=== PATIENT | female | born 1955 | race Two or more races ===

== ENCOUNTER 2017-05-12 10:41 | Day surgery (SDC) | payer BC ==
[~2017-05-12] VITALS: Ht 154.9 cm; Wt 79.8 kg
[2017-05-12 12:07] VITALS: Ht 154.9 cm; Wt 79.8 kg
[2017-05-12] MEDS ORDERED: GLIM2TAB PO (12:22)
[2017-05-12] MEDS ORDERED: LISI20TA11 PO (12:22)
[2017-05-12] MEDS ORDERED: METF-480 PO (12:22)
[2017-05-12] MEDS ORDERED: MIDAZOLAM 1 MG/ML 2 ML INJ ONE (13:58)
[2017-05-12] MEDS ORDERED: FENTAnyl 50 MCG/ML VIAL ONE (13:58)
--- NOTE | 2017-05-12 14:30 | OPPN ---
Date/Time of Note Date/Time of Note DATE: 05/12/17 TIME: 14:29 Operative Report Preoperative Diagnosis Screening colonoscopy Postoperative Diagnosis Normal colonoscopy Operation/Procedure Performed Colonoscopy Surgeon see signature line special education teaching assistant None Anesthesia: moderate sedation (2 mg IV Versed 50 mcg of fentanyl moderate sedation time 15 minutes) Estimated blood loss: none Transfusion Required none Specimen None Grafts/Implants none Complications none JOAQUINA HORAN MD May 12, 2017 14:30
--- NOTE | 2017-05-12 14:30 | OPPN ---
Date/Time of Note Date/Time of Note DATE: 05/12/17 TIME: 14:29 Operative Report Preoperative Diagnosis Screening colonoscopy Postoperative Diagnosis Normal colonoscopy Operation/Procedure Performed Colonoscopy Surgeon see signature line nutritional assistant None Anesthesia: moderate sedation (2 mg IV Versed 50 mcg of fentanyl moderate sedation time 15 minutes) Estimated blood loss: none Transfusion Required none Specimen None Grafts/Implants none Complications none JOAQUINA HORAN MD May 12, 2017 14:30
--- NOTE | 2017-05-12 14:30 | OPPN ---
Date/Time of Note Date/Time of Note DATE: 05/12/17 TIME: 14:29 Operative Report Preoperative Diagnosis Screening colonoscopy Postoperative Diagnosis Normal colonoscopy Operation/Procedure Performed Colonoscopy Surgeon see signature line library circulation assistant None Anesthesia: moderate sedation (2 mg IV Versed 50 mcg of fentanyl moderate sedation time 15 minutes) Estimated blood loss: none Transfusion Required none Specimen None Grafts/Implants none Complications none JOAQUINA HORAN MD May 12, 2017 14:30
--- NOTE | 2017-05-13 06:14 | GILP ---
DATE OF PROCEDURE: PREOPERATIVE DIAGNOSIS: Screening colonoscopy. PROCEDURE DONE: Colonoscopy. POSTOPERATIVE DIAGNOSIS: Occasional diverticula, otherwise normal colonoscopy. ANESTHESIA: Moderate sedation. She received 2 mg IV Versed and 50 mcg of fentanyl, total duration 15 minutes. DESCRIPTION OF PROCEDURE: The patient was put in left lateral decubitus after obtaining informed co nsent after sedation, monitored oximetry, EKG, blood pressure. Rectal exam done, which was normal. Then I advanced an Olympus video pediatric colonoscope all the way to cecum. Appendiceal opening and ileocecal valve were identified. Cecum, ascending colon, tra nsverse colon, descending colon, sigmoid colon, rectum including retroflexion normal. RECOMMENDATIONS: High-fiber diet. Continue follow up with the primary MD. Yearly occult blood and repeat colonoscopy in 10 years. Dictated By: JOAQUINA LI Conf#: [id number] DID#: [id number] CC: BRETT ADAMES MD;*EndCC*
--- NOTE | 2017-05-13 06:14 | GILP ---
DATE OF PROCEDURE: PREOPERATIVE DIAGNOSIS: Screening colonoscopy. PROCEDURE DONE: Colonoscopy. POSTOPERATIVE DIAGNOSIS: Occasional diverticula, otherwise normal colonoscopy. ANESTHESIA: Moderate sedation. She received 2 mg IV Versed and 50 mcg of fentanyl, total duration 15 minutes. DESCRIPTION OF PROCEDURE: The patient was put in left lateral decubitus after obtaining informed co nsent after sedation, monitored oximetry, EKG, blood pressure. Rectal exam done, which was normal. Then I advanced an Olympus video pediatric colonoscope all the way to cecum. Appendiceal opening and ileocecal valve were identified. Cecum, ascending colon, tra nsverse colon, descending colon, sigmoid colon, rectum including retroflexion normal. RECOMMENDATIONS: High-fiber diet. Continue follow up with the primary MD. Yearly occult blood and repeat colonoscopy in 10 years. Dictated By: JOAQUINA LI Conf#: [id number] DID#: [id number] CC: BRETT ADAMES MD;*EndCC*
--- NOTE | 2017-05-13 06:14 | GILP ---
DATE OF PROCEDURE: PREOPERATIVE DIAGNOSIS: Screening colonoscopy. PROCEDURE DONE: Colonoscopy. POSTOPERATIVE DIAGNOSIS: Occasional diverticula, otherwise normal colonoscopy. ANESTHESIA: Moderate sedation. She received 2 mg IV Versed and 50 mcg of fentanyl, total duration 15 minutes. DESCRIPTION OF PROCEDURE: The patient was put in left lateral decubitus after obtaining informed co nsent after sedation, monitored oximetry, EKG, blood pressure. Rectal exam done, which was normal. Then I advanced an Olympus video pediatric colonoscope all the way to cecum. Appendiceal opening and ileocecal valve were identified. Cecum, ascending colon, tra nsverse colon, descending colon, sigmoid colon, rectum including retroflexion normal. RECOMMENDATIONS: High-fiber diet. Continue follow up with the primary MD. Yearly occult blood and repeat colonoscopy in 10 years. Dictated By: JOAQUINA LI Conf#: [id number] DID#: [id number] CC: BRETT ADAMES MD;*EndCC*
== END 2017-05-12 16:01 | disposition home or self-care (01) ==
LOC: GIL 10:41
PROVIDERS: ATTEND Internal Medicine
DX: Z12.11 Encounter for screening for malignant neoplasm of colon (principal); E11.9 Type 2 diabetes mellitus without complications; I10 Essential (primary) hypertension; E78.5 Hyperlipidemia, unspecified; Z79.84 Long term (current) use of oral hypoglycemic drugs
CPT/HCPCS: 45378; 82962; J2250; J3010; Z7610

== ENCOUNTER 2017-07-19 15:44 | Inpatient (IN) | END 2017-07-23 14:38 | disposition home or self-care (01) | DRG 194 ==